=== PATIENT | male | born 1985 | race Caucasian/White ===

== ENCOUNTER 2017-07-26 19:58 | Emergency (ER) | payer BC ==
[~2017-07-26] VITALS: Ht 190.5 cm; Wt 75.7 kg
[2017-07-26] MEDS ORDERED: IBUPROFEN 400 MG TABLET ONE (20:29)
[2017-07-26] MEDS ORDERED: IBUPROFEN 400 MG TABLET PO ONE (20:30)
[2017-07-26 22:09] VITALS: BP 107/69
== END 2017-07-26 22:12 | disposition home or self-care (01) ==
LOC: ER 20:07
DX: S61.412A Laceration without foreign body of left hand, initial encounter (principal); W18.09XA Striking against other object with subsequent fall, initial encounter; Y93.89 Activity, other specified; Y92.89 Other specified places as the place of occurrence of the external cause; Y99.8 Other external cause status
CPT/HCPCS: 12001; 73130; 99284; A4606; A6403 ×2; Z7610